=== PATIENT | female | born 1975 ===

== ENCOUNTER 2022-02-19 11:05 | Observation (INO) | payer MEDICAID, OTHER ==
[2022-02-19] MEDS ORDERED: GLYB2.5T8 PO (11:53)
[2022-02-19] MEDS ORDERED: METF-370 PO (11:53)
== END 2022-02-19 12:27 | disposition home or self-care (01) ==
LOC: LDRP 11:05
PROVIDERS: ADMIT Obstetrics & Gynecology; ATTEND Obstetrics & Gynecology
DX: O24.419 Gestational diabetes mellitus in pregnancy, unspecified control (principal); Z3A.31 31 weeks gestation of pregnancy
CPT/HCPCS: 59025; 81002; 82948; 82962; 94760; G0378

== ENCOUNTER 2022-02-21 08:02 | Observation (INO) | payer MEDICAID ==
[~2022-02-21 08:02] MED LIST: GLYB2.5T8 PO; METF-370 PO
== END 2022-02-21 12:06 | disposition home or self-care (01) ==
LOC: LDRP 10:10
PROVIDERS: ADMIT Obstetrics & Gynecology; ATTEND Obstetrics & Gynecology
DX: O24.419 Gestational diabetes mellitus in pregnancy, unspecified control (principal); Z3A.32 32 weeks gestation of pregnancy
CPT/HCPCS: 59025; 76818; 81002; 82948; 82962; 94760; G0378

== ENCOUNTER 2022-02-25 10:12 | Observation (INO) | payer MEDICAID | END 2022-02-25 12:00 | disposition home or self-care (01) | LOC: LDRP 10:12 | PROVIDERS: ADMIT Obstetrics & Gynecology; ATTEND Obstetrics & Gynecology | DX: O24.419 Gestational diabetes mellitus in pregnancy, unspecified control (principal); Z3A.32 32 weeks gestation of pregnancy | CPT/HCPCS: 59025; 76818; 81002; 82948; 82962; 94760; G0378 ==

== ENCOUNTER 2022-02-28 15:05 | Observation (INO) | payer MEDICAID | END 2022-02-28 17:19 | disposition home or self-care (01) | LOC: LDRP 15:30 | PROVIDERS: ADMIT Obstetrics & Gynecology; ATTEND Obstetrics & Gynecology | DX: O24.419 Gestational diabetes mellitus in pregnancy, unspecified control (principal); Z3A.33 33 weeks gestation of pregnancy | CPT/HCPCS: 59025; 76818; 81002; 82948; 94760; G0378; 82962 ==

== ENCOUNTER 2022-03-04 07:33 | Observation (INO) | payer MEDICAID | END 2022-03-04 11:23 | disposition home or self-care (01) | LOC: LDRP 09:30 | PROVIDERS: ADMIT Obstetrics & Gynecology; ATTEND Obstetrics & Gynecology | DX: O24.415 Gestational diabetes mellitus in pregnancy, controlled by oral hypoglycemic drugs (principal); O32.1XX0 Maternal care for breech presentation, not applicable or unspecified; Z3A.33 33 weeks gestation of pregnancy | CPT/HCPCS: 59025; 76818; 81002; 82948; 82962; 94760; G0378 ==

== ENCOUNTER 2022-03-07 14:40 | Observation (INO) | payer MEDICAID | END 2022-03-07 17:40 | disposition home or self-care (01) | LOC: LDRP 16:04 | PROVIDERS: ADMIT Obstetrics & Gynecology; ATTEND Obstetrics & Gynecology | DX: O24.419 Gestational diabetes mellitus in pregnancy, unspecified control (principal); Z3A.34 34 weeks gestation of pregnancy | CPT/HCPCS: 59025; 76818; 81002; 82948; 82962; G0378 ==

== ENCOUNTER 2022-03-11 07:41 | Observation (INO) | payer MEDICAID | END 2022-03-11 11:31 | disposition home or self-care (01) | LOC: LDRP 10:00 | PROVIDERS: ADMIT Obstetrics & Gynecology; ATTEND Obstetrics & Gynecology | DX: O24.419 Gestational diabetes mellitus in pregnancy, unspecified control (principal); Z3A.34 34 weeks gestation of pregnancy | CPT/HCPCS: 59025; 76818; 81002; 82948; 82962; 94760; G0378 ==

== ENCOUNTER 2022-03-14 15:51 | Observation (INO) | payer MEDICAID | END 2022-03-14 17:55 | disposition home or self-care (01) | LOC: LDRP 15:51 | PROVIDERS: ADMIT Obstetrics & Gynecology; ATTEND Obstetrics & Gynecology | DX: O24.419 Gestational diabetes mellitus in pregnancy, unspecified control (principal); Z3A.35 35 weeks gestation of pregnancy | CPT/HCPCS: 59025; 76818; 81002; 82948; 82962; 94762; G0378 ==

== ENCOUNTER 2022-03-18 08:35 | Observation (INO) | payer MEDICAID | END 2022-03-18 11:29 | disposition home or self-care (01) | LOC: LDRP 10:00 | PROVIDERS: ADMIT Obstetrics & Gynecology; ATTEND Obstetrics & Gynecology | DX: O24.419 Gestational diabetes mellitus in pregnancy, unspecified control (principal); O34.63 Maternal care for abnormality of vagina, third trimester; N89.8 Other specified noninflammatory disorders of vagina; Z3A.35 35 weeks gestation of pregnancy | CPT/HCPCS: 59025; 76818; 81002; 82948; 82962; 94760; G0378 ==

== ENCOUNTER 2022-03-25 08:10 | Observation (INO) | payer MEDICAID | END 2022-03-25 11:22 | disposition home or self-care (01) | LOC: LDRP 10:00 | PROVIDERS: ADMIT Obstetrics & Gynecology; ATTEND Obstetrics & Gynecology | DX: O24.419 Gestational diabetes mellitus in pregnancy, unspecified control (principal); Z3A.36 36 weeks gestation of pregnancy; Z79.899 Other long term (current) drug therapy | CPT/HCPCS: 59025; 76818; 81002; 82948; 82962; 94760; G0378 ==

== ENCOUNTER 2022-03-29 08:18 | Observation (INO) | payer SELFPAY ==
[2022-03-30] MEDS ORDERED: PREN-96 PO (08:33)
== END 2022-03-29 17:41 | disposition home or self-care (01) ==
LOC: LDRP 15:40
PROVIDERS: ADMIT Obstetrics & Gynecology; ATTEND Obstetrics & Gynecology
DX: O24.419 Gestational diabetes mellitus in pregnancy, unspecified control (principal); Z3A.37 37 weeks gestation of pregnancy
CPT/HCPCS: 59025; 76818; 81002; 82948; 82962; 94760; G0378

== ENCOUNTER 2022-03-30 07:35 | Observation (INO) | payer MEDICAID ==
[~2022-03-30] VITALS: Ht 162.6 cm; Wt 78.5 kg
[2022-03-30] MEDS ORDERED: PREN-96 PO (08:33)
== END 2022-03-30 10:20 | disposition home or self-care (01) ==
LOC: LDRP 07:35
PROVIDERS: ADMIT Obstetrics & Gynecology; ATTEND Obstetrics & Gynecology
DX: O24.419 Gestational diabetes mellitus in pregnancy, unspecified control (principal); O42.92 Full-term premature rupture of membranes, unspecified as to length of time between rupture and onset of labor; O26.893 Other specified pregnancy related conditions, third trimester; N89.8 Other specified noninflammatory disorders of vagina; Z3A.37 37 weeks gestation of pregnancy
CPT/HCPCS: 59025; 76818; 81002; 82962; 94760; G0378

== ENCOUNTER 2022-04-02 07:51 | Observation (INO) | payer MEDICAID ==
[~2022-04-02 07:51] MED LIST changes: +PREN-96 PO
== END 2022-04-02 11:55 | disposition home or self-care (01) ==
LOC: LDRP 09:14
PROVIDERS: ADMIT Obstetrics & Gynecology; ATTEND Obstetrics & Gynecology
DX: O24.415 Gestational diabetes mellitus in pregnancy, controlled by oral hypoglycemic drugs (principal); O34.63 Maternal care for abnormality of vagina, third trimester; N89.8 Other specified noninflammatory disorders of vagina; O26.893 Other specified pregnancy related conditions, third trimester; R10.2 Pelvic and perineal pain; Z3A.37 37 weeks gestation of pregnancy; Z79.84 Long term (current) use of oral hypoglycemic drugs
CPT/HCPCS: 59025; 76818; 81002; 82948; 82962; G0378

== ENCOUNTER 2022-04-05 08:17 | Observation (INO) | payer MEDICAID | END 2022-04-05 17:16 | disposition home or self-care (01) | LOC: LDRP 14:59 | PROVIDERS: ADMIT Obstetrics & Gynecology; ATTEND Obstetrics & Gynecology | DX: O24.419 Gestational diabetes mellitus in pregnancy, unspecified control (principal); O34.63 Maternal care for abnormality of vagina, third trimester; N89.8 Other specified noninflammatory disorders of vagina; Z3A.38 38 weeks gestation of pregnancy | CPT/HCPCS: 59025; 76818; 81002; 82948; 82962; 94760; G0378 ==

== ENCOUNTER 2022-04-09 13:45 | Inpatient (IN) | payer MEDICAID ==
[~2022-04-09] VITALS: Ht 162.6 cm; Wt 78.9 kg
[2022-04-09] MEDS ORDERED: PROMETHAZINE HCL 25 MG/ML 1ML IV PRN (18:00)
[2022-04-09] MEDS ORDERED: BUTORPHANOL TARTRATE 2 MG/1 ML VIAL IV PRN ×2 (18:00)
[2022-04-09] MEDS ORDERED: WITCH HAZEL-GLYCERIN PAD TOP PRN (18:00)
[2022-04-09] MEDS ORDERED: PHISODERM TOP SOLN 240ML BTL TOP PRN (18:00)
[2022-04-09] MEDS ORDERED: LIDOCAINE 2%HCL (LOCAL ANESTH.) INJ 10ml MDV IJ PRN (18:00)
[2022-04-09] MEDS ORDERED: DERMOPLAST 60ML BOTTLE TOP PRN (18:00)
[2022-04-09 18:57] LABS: Basophils # (auto) 0 10 ^3/uL (0-0.2); Basophils % (auto) 0.5 % (0.0-2.0); Eosinophils # (auto) 0 10 ^3/uL (0-0.8); Eosinophils % (auto) 0.5 % (0.0-7.0); Hematocrit 35.4 % (36.0-46.0); Hemoglobin 12.4 g/dL (12.2-16.2); Lymphocytes # (auto) 2.3 10 ^3/uL (0.4-5.4); Lymphocytes % (auto) 25.5 % (10.0-50.0); Mean Corpuscular Hemoglobin 33.4 pg (28.0-32.0); Mean Corpuscular Hgb Conc. 34.9 g/dL (32.0-36.0); Mean Corpuscular Volume 95.8 fL (80.0-100.0); Monocytes # (auto) 0.6 10 ^3/uL (0-1.3); Monocytes % (auto) 6.5 % (0.0-12.0); Nucleated Red Blood Cells % 0.1 %; Red Cell Distribution Width 14.9 % (11.8-14.3); White Blood Cell 8.9 10^3/uL (4.4-10.8)
[2022-04-09 19:09] LABS: Albumin 2.8 g/dL (3.4-5.0); Calcium 8.8 mg/dL (8.5-10.1); Potassium 4.3 mmol/L (3.5-5.1)
[2022-04-09 19:13] LABS: BUN/Creatinine Ratio 17.5; Bilirubin, Total 0.2 mg/dL (0.2-1.0); Total Protein 7.5 g/dL (6.4-8.2)
[2022-04-09 19:19] LABS: INR 0.94 (0.9-1.15); Partial Thromboplastin Time 25.1 sec (23.6-33.0)
[2022-04-09 20:13] LABS: Urine Bacteria NONE SEEN /hpf (None Seen); Urine Blood Negative /uL (Negative); Urine Specific Gravity 1.005 (1.001-1.035); Urine WBC <1 /hpf (0 - 5)
[2022-04-09] MEDS: miSOPROStol 50 MCG per PRE-CUT 1/2 TAB PO PRN (20:31)
[2022-04-09 20:50] LABS: Alcohol, Urine < 3.0 mg/dL (0-10); Amphetamine Screen, Urine NEGATIVE (NEGATIVE); Barbiturate Scree,Urine NEGATIVE (NEGATIVE); Benzodiazephine Screen, Urine NEGATIVE (NEGATIVE); Cannabinoid Screen, Urine NEGATIVE (NEGATIVE); Cocaine Screen, Urine NEGATIVE (NEGATIVE); Opiate Scree,Urine NEGATIVE (NEGATIVE); Phencyclidine Screen, Urine NEGATIVE (NEGATIVE)
[2022-04-10] VITALS (18 sets, daily range): BP systolic 57–106; BP diastolic 47–60
[2022-04-10] MEDS: LACTATED RINGER'S 1,000 ML IV SCH ×2 (00:29→03:26)
[2022-04-10] MEDS: miSOPROStol 50 MCG per PRE-CUT 1/2 TAB PO PRN ×2 (00:33→05:02)
[2022-04-10] MEDS ORDERED: LACT. RINGERS/OXYTOCIN 20UNITS 500 ML IV ONE ×2 (05:45→06:15)
[2022-04-10] MEDS ORDERED: MORPHINE SULF PF 5 MG/10 ML VIAL ONE (09:59)
[2022-04-10] MEDS ORDERED: ceFAZolin 1GM/50ML 50 ML IV ONE ×2 (10:07→10:15)
[2022-04-10] MEDS ORDERED: LACTATED RINGER'S 1,000 ML IV ONE (10:15)
[2022-04-10] MEDS ORDERED: ONDANSETRON HCL 4 MG/2 ML VIAL IV PRN ×3 (10:30→11:45)
[2022-04-10] MEDS ORDERED: LACT. RINGERS/OXYTOCIN 20UNITS 1,000 ML IV SCH (10:30)
[2022-04-10] MEDS ORDERED: MORPHINE SULFATE 4 MG/ML SYR/VIAL IV PRN ×2 (10:30→11:45)
[2022-04-10] MEDS ORDERED: ceFAZolin 1GM/50ML 50 ML IV SCH (10:30)
[2022-04-10] MEDS ORDERED: oxyTOCIN 10 UNIT/ML 10ML VIAL ONE (10:47)
[2022-04-10] MEDS ORDERED: DexAMETHasone SOD PHOS 10MG/1ML VIAL INJ ONE (10:47)
[2022-04-10] MEDS ORDERED: METOCLOPRAMIDE HCL 5MG/ml INJ 2ml VIAL ONE (10:47)
[2022-04-10] MEDS ORDERED: ONDANSETRON HCL 4 MG/2 ML VIAL ONE (10:47)
[2022-04-10] MEDS ORDERED: ceFAZolin 1GM VL ONE (10:47)
[2022-04-10] MEDS ORDERED: HYDROmorphone HCL 2 MG/ML VL/or syr IV PRN ×2 (11:45)
[2022-04-10] MEDS ORDERED: NALOXONE HCL 0.4 MG/ML VIAL IV PRN (11:45)
[2022-04-10] MEDS ORDERED: KETOROLAC TROMETH 30 MG/ML 1ML VIAL IV PRN (11:45)
[2022-04-10] MEDS ORDERED: diphenhdrAMINE HCL 50 MG/1 ML VL IV PRN (11:45)
[2022-04-10] MEDS ORDERED: METOCLOPRAMIDE HCL 5MG/ml INJ 2ml VIAL IV PRN (11:45)
[2022-04-10] MEDS ORDERED: fentaNYL CITRATE 100 MCG/2 ML VL IV PRN (11:45)
[2022-04-10] MEDS: ePHEDrine SULFATE 50 MG/ML AMP IV PRN ×2 (12:03→12:20)
[2022-04-10] MEDS: ceFAZolin 1GM/50ML 50 ML IV SCH (18:14)
[2022-04-10] MEDS: ACETAMINOPHEN IV 1000 MG/100ML (10MG/ML) IV PRN (20:50)
[2022-04-10 22:27] LABS: Basophils # (auto) 0.1 10 ^3/uL (0-0.2); Basophils % (auto) 0.7 % (0.0-2.0); Eosinophils # (auto) 0 10 ^3/uL (0-0.8); Hemoglobin 10.8 g/dL (12.2-16.2); Lymphocytes # (auto) 1.3 10 ^3/uL (0.4-5.4); Lymphocytes % (auto) 9.4 % (10.0-50.0); Mean Corpuscular Hemoglobin 32.4 pg (28.0-32.0); Mean Corpuscular Hgb Conc. 33.8 g/dL (32.0-36.0); Monocytes # (auto) 0.6 10 ^3/uL (0-1.3); Neutrophils # (auto) 12.1 10 ^3/uL (1.6-8.6); Neutrophils % (auto) 85.9 % (37.0-80.0); Red Blood Cells 3.33 10^6/uL (4.0-5.20); Red Cell Distribution Width 14.8 % (11.8-14.3); White Blood Cell 14.1 10^3/uL (4.4-10.8)
[2022-04-11] VITALS (7 sets, daily range): BP systolic 88–107; BP diastolic 50–76
[2022-04-11] MEDS: ceFAZolin 1GM/50ML 50 ML IV SCH ×2 (01:46→11:01)
[2022-04-11] MEDS: LACTATED RINGER'S 1,000 ML IV SCH ×3 (01:48→19:45)
[2022-04-11] MEDS: ACETAMINOPHEN IV 1000 MG/100ML (10MG/ML) IV PRN (04:51)
[2022-04-11 05:59] LABS: Basophils # (auto) 0 10 ^3/uL (0-0.2); Basophils % (auto) 0.3 % (0.0-2.0); Eosinophils # (auto) 0 10 ^3/uL (0-0.8); Eosinophils % (auto) 0.1 % (0.0-7.0); Hematocrit 28.6 % (36.0-46.0); Hemoglobin 10.2 g/dL (12.2-16.2); Lymphocytes # (auto) 2.6 10 ^3/uL (0.4-5.4); Lymphocytes % (auto) 19.3 % (10.0-50.0); Mean Corpuscular Hgb Conc. 35.5 g/dL (32.0-36.0); Mean Corpuscular Volume 95.8 fL (80.0-100.0); Monocytes # (auto) 0.9 10 ^3/uL (0-1.3); Monocytes % (auto) 6.5 % (0.0-12.0); Neutrophils # (auto) 9.9 10 ^3/uL (1.6-8.6); Neutrophils % (auto) 73.8 % (37.0-80.0); Nucleated Red Blood Cells % 0.1 %; Red Blood Cells 2.99 10^6/uL (4.0-5.20); Red Cell Distribution Width 14.8 % (11.8-14.3); White Blood Cell 13.5 10^3/uL (4.4-10.8)
[2022-04-11 07:07] LABS: RPR Non Reactive (Non Reactive)
[2022-04-11] MEDS ORDERED: HYDROcodone-ACET 5/325MG TAB PO PRN (09:45)
[2022-04-11] MEDS ORDERED: BISACODYL 10 MG RECT SUPP PR PRN (09:45)
[2022-04-11] MEDS: HYDROcodone-ACET 5/325MG TAB PO PRN ×3 (10:59→21:50)
[2022-04-11] MEDS: FERROUS SULFATE 325mg EC TAB PO SCH ×2 (10:59→21:51)
[2022-04-11] MEDS: DOCUSATE SOD 100 MG CAP PO SCH ×2 (11:00→21:50)
[2022-04-11] MEDS: DOCUSATE CALCIUM 240 MG CAP PO SCH (11:00)
[2022-04-11] MEDS: SIMETHICONE 80 MG CHEWABLE TABLET PO SCH ×3 (13:17→21:50)
[2022-04-11] MEDS ORDERED: DOCU-94 PO (13:51)
[2022-04-11] MEDS ORDERED: HYDR-4902 PO (13:51)
[2022-04-11] MEDS ORDERED: IBUP800T27 PO (13:51)
[2022-04-11] MEDS: IBUPROFEN 800 MG TAB PO PRN (17:55)
[2022-04-12 03:14] VITALS: BP 105/60
[2022-04-12] MEDS: HYDROcodone-ACET 5/325MG TAB PO PRN ×5 (03:18→22:23)
[2022-04-12] MEDS: SIMETHICONE 80 MG CHEWABLE TABLET PO SCH ×4 (06:26→22:24)
[2022-04-12] MEDS: IBUPROFEN 800 MG TAB PO PRN ×2 (06:26→15:03)
[2022-04-12 06:31] VITALS: BP 93/59
[2022-04-12] MEDS: DOCUSATE CALCIUM 240 MG CAP PO SCH (09:32)
[2022-04-12] MEDS: DOCUSATE SOD 100 MG CAP PO SCH ×2 (09:32→22:24)
[2022-04-12] MEDS: FERROUS SULFATE 325mg EC TAB PO SCH ×2 (09:32→22:23)
[2022-04-12 11:20] VITALS: BP 102/67
[2022-04-12 15:00] VITALS: BP 98/66
[2022-04-12 19:00] VITALS: BP 99/63
[2022-04-12 23:00] VITALS: BP 108/59
[2022-04-13] MEDS: IBUPROFEN 800 MG TAB PO PRN (01:03)
[2022-04-13 03:26] VITALS: BP 93/56
[2022-04-13] MEDS: HYDROcodone-ACET 5/325MG TAB PO PRN ×2 (03:47→09:23)
[2022-04-13] MEDS: SIMETHICONE 80 MG CHEWABLE TABLET PO SCH (05:37)
[2022-04-13 07:15] VITALS: BP 108/69
[2022-04-13] MEDS: DOCUSATE SOD 100 MG CAP PO SCH (09:24)
[2022-04-13] MEDS: FERROUS SULFATE 325mg EC TAB PO SCH (09:24)
== END 2022-04-13 11:20 | disposition home or self-care (01) | DRG 540 ==
LOC: LDRP 13:45 → OBSVTOIN 16:51 → INTOOBSV 16:51 → LDRP 17:05 → OBSVTOIN 18:05 → LDRP 22:30
PROVIDERS: ADMIT Obstetrics & Gynecology; ATTEND Obstetrics & Gynecology
PROC: 10D00Z1 Extraction of Products of Conception, Low, Open Approach (ICD-10-PCS; principal; 2022-04-10 10:15)
DX: O32.1XX0 Maternal care for breech presentation, not applicable or unspecified (principal); O41.03X0 Oligohydramnios, third trimester, not applicable or unspecified; Z20.822 Contact with and (suspected) exposure to COVID-19; O24.429 Gestational diabetes mellitus in childbirth, unspecified control; Z3A.38 38 weeks gestation of pregnancy; Z37.0 Single live birth
CPT/HCPCS: 36415; 59025; 76805; 76815; 76818; 80053; 80307; 81001; 81002; 82948; 82962; 84112; 85025; 85610; 85730; 86592; 86850; 86900; 86901; 94760; 94762; 96360; 96361; G0378; J0131; J0690; J1100; J2405; J2590